=== PATIENT | male | born 1940 | race Caucasian/White ===

== ENCOUNTER 2024-07-24 06:08 | Day surgery (SDC) | payer OTHER ==
[2024-07-15 14:14] VITALS: BP 131/70
[~2024-07-24] VITALS: Ht 167.6 cm; Wt 65.3 kg
[~2024-07-24 06:08] MED LIST: ALTACE10 MG PO; ASA81 MG PO; ATENOLOL50 MG PO; HYDRODIURIL12.5 MG PO; LIPITOR40 MG PO; PLAVIX75 MG PO; PROTONIX40 MG PO; ZETIA10 MG PO
[2024-07-24] MEDS ORDERED: CLINDAMYCIN PHOSPHATE 150 MG/ML (900mg) ONE (08:15)
[2024-07-24] MEDS ORDERED: LIDOCAINE HCL 1% 20 ML VIAL IJ ONE (08:20)
== END 2024-07-24 10:30 | disposition home or self-care (01) ==
LOC: CIR.AMB 06:08
PROVIDERS: ATTEND Surgery Surgery of the Hand
DX: M65.842 Other synovitis and tenosynovitis, left hand (principal); Z88.0 Allergy status to penicillin; Z88.2 Allergy status to sulfonamides; I10 Essential (primary) hypertension